=== PATIENT | male | born 1985 | race African-American/Black ===

== ENCOUNTER 2017-02-17 04:10 | Emergency (ER) | payer SELFPAY ==
[~2017-02-17] VITALS: Ht 182.9 cm; Wt 113.4 kg
[2017-02-17 04:15] VITALS: BP 180/92
--- NOTE | 2017-02-17 04:55 | PHYS DOC ---
Past Medical History Past Medical History: No Pertinent History Past Surgical History: No Surgical History Alcohol Use: Occasionally Drug Use: None Social History Narrative: DENIES DRUG USE Adult General Chief Complaint Chief Complaint: LACERATION/AVULSION HPI HPI Patient is a 31 year old male presenting to the emergency department for evaluation of right forearm laceration that he sustained while at work at the [employer]. Patient says he hit up against a sharp object. He says his tetanus is up-to-date and he denies any other injuries and he has no distal weakness numbness or tingling. Review of Systems Review of Systems Constitutional: Denies fever or chills [] Integument: + laceration Neurologic: Denies focal weakness or sensory changes [] Current Medications Current Medications Current Medications Medications (Trade) Dose Ordered Sig/Nay Start Time Stop Time Status Last Admin Dose Admin Lidocaine/ Epinephrine (Xylocaine 1%-Epi 1:100,000) 20 ml 1X ONCE 02/17/17 04:30 02/17/17 04:31 UNV Allergies Allergies Allergies Coded Allergies Type Severity Reaction Last Updated Verified No Known Drug Allergies 05/09/15 No Physical Exam Physical Exam Constitutional: Well developed, well nourished, no acute distress, non-toxic appearance. [] Extremities: Right forearm with approximately 5 cm laceration with subcutaneous fat visualized and it was examined in a bloodless field and there is no obvious muscle or tendon laceration. Neurologic: Alert and oriented X 3, normal motor function, normal sensory function, no focal deficits noted. [] Current Patient Data Vital Signs Vital Signs Date Time Temp Pulse Resp B/P (MAP) Pulse Ox O2 Delivery O2 Flow Rate FiO2 02/17/17 04:15 98.8 93 18 98 Room Air 98.8 EKG EKG [] Radiology/Procedures Radiology/Procedures Indication: [Right forearm laceration] Procedure: The patient was placed in the appropriate position and anesthesia around the approximately 7 mL of 1% lidocaine with epinephrine injected into wound. The area was then cleansed with chlorhexidine and irrigated copiously. The laceration was closed using 5 3-0 nylon sutures. Total repaired wound length: 5 cm The patient tolerated the procedure well Complications: None Course & Med Decision Making Course & Med Decision Making Patient's laceration cleansed and closed with no complications. Distally neurovascularly intact so he'll be discharged in stable condition and told to return to PCP in 10 days for sutural removal and come back to the emergency department sooner with any worsening pain fevers drainage or other general concerns. Dragon Disclaimer Dragon Disclaimer This electronic medical record was generated, in whole or in part, using a voice recognition dictation system. Departure Departure Impression: Primary Impression: Forearm laceration Disposition: HOME, SELF-CARE Condition: GOOD Referrals: NO PCP (PCP) Patient Instructions: Laceration Care, Adult Additional Instructions: Have the sutures taken out in 10 days and come back to the ER sooner with any new or worsening symptoms. Problem Qualifiers Primary Impression: Forearm laceration Encounter type: initial encounter Laterality: right Qualified Codes: S51.811A - Laceration without foreign body of right forearm, initial encounter JULIET FERRARO DO Feb 17, 2017 04:55
[2017-02-17] MEDS ORDERED: LIDOCAINE 1%/EPI 1:100,000 20 ML VIAL. INJ ONE (05:00)
== END 2017-02-17 05:00 | disposition home or self-care (01) ==
LOC: ER 04:10
DX: S51.811A Laceration without foreign body of right forearm, initial encounter (principal); W22.8XXA Striking against or struck by other objects, initial encounter; Y93.89 Activity, other specified; Y99.0 Civilian activity done for income or pay; Y92.69 Other specified industrial and construction area as the place of occurrence of the external cause
CPT/HCPCS: 12002; 99283-25